=== PATIENT | male | born 1955 | race Caucasian/White ===

== ENCOUNTER → 2021-11-21 | Outpatient (CLI) | payer OTHER | END | disposition home or self-care (01) | LOC: SHCH 14:08 | PROVIDERS: ATTEND Student in an Organized Health Care Education/Training Program | DX: I48.0 Paroxysmal atrial fibrillation (principal); I13.10 Hypertensive heart and chronic kidney disease without heart failure, with stage 1 through stage 4 chronic kidney disease, or unspecified chronic kidney disease; E11.22 Type 2 diabetes mellitus with diabetic chronic kidney disease; N18.9 Chronic kidney disease, unspecified; E78.5 Hyperlipidemia, unspecified; E66.9 Obesity, unspecified | CPT/HCPCS: 93306 ==

== ENCOUNTER 2021-12-10 06:50 | Day surgery (SDC) | payer OTHER ==
[2021-12-08 11:40] LABS: BASOPHILS % (AUTO) 0.6 % (0.0-5.0); EOSINOPHILS % (AUTO) 3.1 % (0.0-8.0); HEMATOCRIT 40.5 % (42-54); LYMPHOCYTES % (AUTO) 19.3 % (21.0-51.0); MEAN CORPUSCULAR HEMOGLOBIN 25.8 pg (27.0-33.0); MEAN CORPUSCULAR HGB CONC 30.4 g/dL (32.0-36.0); MEAN CORPUSCULAR VOLUME 85.1 fL (79-99); MONOCYTES % (AUTO) 7.2 % (3.0-13.0); NEUTROPHILS % (AUTO) 69.6 % (40.0-77.0); PLATELET COUNT (AUTO) 309 K/uL (130-400); RED BLOOD CELL COUNT(AUTO) 4.76 MIL/uL (4.50-6.20); RED CELL DISTRIBUTION WIDTH 15.4 % (11.0-15.5); WHITE BLOOD COUNT (AUTO) 8.7 K/uL (4.8-10.8)
[2021-12-08 11:45] LABS: CREATININE 1.5 mg/dL (0.5-1.5); POTASSIUM 3.8 mmol/L (3.5-5.1)
[2021-12-08 12:03] LABS: INR 1.49 (0.85-1.15); PROTHROMBIN TIME 15.7 SEC (9.6-11.6)
[2021-12-08 12:04] LABS: PARTIAL THROMBOPLASTIN TIME 48.6 SEC (26.3-35.5)
[2021-12-10] VITALS (14 sets, daily range): BP systolic 115–140; BP diastolic 65–84
[~2021-12-10] VITALS: Ht 152.4 cm; Wt 128.6 kg
[~2021-12-10 06:50] MED LIST: AMIO200T68 PO; AMLO-258 PO; ASPI-1443 PO; ATOR20TA65 PO; DABI150C PO; LISI40TA9 PO; METF-446 PO; METO-409 PO; OXYB10TA30 PO
[2021-12-10] MEDS ORDERED: 0.9%NACL 1000ML 1,000 ML IV SCH (08:00)
[2021-12-10] MEDS ORDERED: LIDOCAINE HCL 2% VISCOUS 15 ML UDCUP ONE (08:00)
[2021-12-10] MEDS ORDERED: EPINEPHRINE PF 1MG AMP ONE (08:28)
== END 2021-12-10 10:30 | disposition home or self-care (01) ==
LOC: DAH 06:50 → EDSTATUS 11:00
PROVIDERS: ATTEND Student in an Organized Health Care Education/Training Program
DX: I48.20 Chronic atrial fibrillation, unspecified (principal); I48.0 Paroxysmal atrial fibrillation; E11.22 Type 2 diabetes mellitus with diabetic chronic kidney disease; I12.9 Hypertensive chronic kidney disease with stage 1 through stage 4 chronic kidney disease, or unspecified chronic kidney disease; N18.9 Chronic kidney disease, unspecified; I49.1 Atrial premature depolarization; E78.5 Hyperlipidemia, unspecified; J44.9 Chronic obstructive pulmonary disease, unspecified; Z79.01 Long term (current) use of anticoagulants; Z79.899 Other long term (current) drug therapy; Z86.718 Personal history of other venous thrombosis and embolism; Z86.73 Personal history of transient ischemic attack (TIA), and cerebral infarction without residual deficits; Z79.82 Long term (current) use of aspirin; Z98.890 Other specified postprocedural states
CPT/HCPCS: 36415; 80048; 82948; 85025; 85610; 85730; 87635; 92960; 93312; 93325; C9803; J7030; 96374; 99156; J0171

== ENCOUNTER 2022-02-03 09:10 | Inpatient (IN) | payer OTHER ==
[~2022-02-03] VITALS: Ht 182.9 cm; Wt 122.1 kg
[~2022-02-03 09:10] MED LIST changes: -AMIO200T68 PO; -METO-409 PO
[2022-02-03 09:47] LABS: HEMATOCRIT 41.3 % (42-54); MEAN CORPUSCULAR HGB CONC 30.8 g/dL (32.0-36.0); MEAN CORPUSCULAR VOLUME 84.6 fL (79-99); PLATELET COUNT (AUTO) 379 K/uL (130-400); RED BLOOD CELL COUNT(AUTO) 4.88 MIL/uL (4.50-6.20); RED CELL DISTRIBUTION WIDTH 14.6 % (11.0-15.5); WHITE BLOOD COUNT (AUTO) 10.8 K/uL (4.8-10.8)
[2022-02-03 10:00] LABS: CREATININE 1.7 mg/dL (0.5-1.5); POTASSIUM 3.2 mmol/L (3.5-5.1)
[2022-02-03] MEDS ORDERED: ACET-66 PO (10:00)
[2022-02-03] MEDS ORDERED: ATOR40TA71 PO (10:00)
[2022-02-03] MEDS ORDERED: CYCL-309 PO (10:00)
[2022-02-03] MEDS ORDERED: AMIODARONE 150MG VIAL 150 MG in DEXTROSE 5%-WATER 100 ML IV SCH (10:00)
[2022-02-03] MEDS ORDERED: HYDR-3830 PO (10:00)
[2022-02-03] MEDS ORDERED: AMIO200T68 PO (10:00)
[2022-02-03] MEDS ORDERED: METO50TA18 PO (10:00)
[2022-02-03] MEDS ORDERED: OXYB5TAB15 PO (10:00)
[2022-02-03 10:04] LABS: ALBUMIN 3.5 g/dL (3.5-5.0); BILIRUBIN,TOTAL 0.7 mg/dL (0.2-1.0); TOTAL PROTEIN, SERUM 7.3 g/dL (6.0-8.3)
[2022-02-03] MEDS ORDERED: AMIODARONE 360MG/200ML D5W(1MG/MIN) IV SCH ×2 (10:30)
[2022-02-03] MEDS ORDERED: POTASSIUM CHLORIDE 10% ELIXIR 20 MEQ/15 ML UDCUP PO PRN (11:30)
[2022-02-03] MEDS ORDERED: POTASSIUM CHLORIDE 20MEQ/100ML 100 ML IV PRN (11:30)
[2022-02-03] MEDS: KCL 20 MEQ ERTAB PO PRN ×2 (11:38→18:19)
[2022-02-03] MEDS: MAGNESIUM 2GM PREMIX 50ML 50 ML IV SCH ×2 (11:51→18:20)
[2022-02-03] MEDS ORDERED: CYCLOBENZAPRINE HCL 10 MG TABLET PO PRN (13:00)
[2022-02-03] MEDS ORDERED: ACETAMINOPHEN 500 MG TABLET PO PRN (13:00)
[2022-02-03 13:17] LABS: HEMOGLOBIN A1C 6.7 % (4.0-6.0)
[2022-02-03 15:29] VITALS: BP 143/80
[2022-02-03] MEDS ORDERED: AMIODARONE 540 MG/D5W 300ML (0.5MG/MIN) IV SCH ×2 (16:30)
[2022-02-03] MEDS: INSULIN HUMULIN R 100 UNIT/ML 3ML SQ SCH ×2 (16:30→20:17)
[2022-02-03 16:39] VITALS: BP 114/61
[2022-02-03] MEDS: TERBINAFINE HCL 15 GM TUBE TP SCH (16:41)
[2022-02-03 19:48] VITALS: BP 140/78
[2022-02-03] MEDS: OXYBUTYNIN CHLORIDE 5 MG TABLET PO SCH (20:16)
[2022-02-03] MEDS: HYDROXYZINE 10 MG TABLET PO SCH (20:16)
[2022-02-03] MEDS: DABIGATRAN 150MG CAPSULE PO SCH (20:16)
[2022-02-03 23:44] VITALS: BP 147/80
[2022-02-04] MEDS: TERBINAFINE HCL 15 GM TUBE TP SCH ×2 (03:00→18:51)
[2022-02-04 03:33] LABS: BASOPHILS % (AUTO) 0.5 % (0.0-5.0); EOSINOPHILS % (AUTO) 2.9 % (0.0-8.0); HEMATOCRIT 40.3 % (42-54); LYMPHOCYTES % (AUTO) 17.8 % (21.0-51.0); MEAN CORPUSCULAR HEMOGLOBIN 26.7 pg (27.0-33.0); MEAN CORPUSCULAR HGB CONC 31.8 g/dL (32.0-36.0); MEAN CORPUSCULAR VOLUME 84.1 fL (79-99); MONOCYTES % (AUTO) 6.9 % (3.0-13.0); NEUTROPHILS % (AUTO) 71.5 % (40.0-77.0); PLATELET COUNT (AUTO) 301 K/uL (130-400); RED BLOOD CELL COUNT(AUTO) 4.79 MIL/uL (4.50-6.20); RED CELL DISTRIBUTION WIDTH 14.4 % (11.0-15.5); WHITE BLOOD COUNT (AUTO) 10.5 K/uL (4.8-10.8)
[2022-02-04 03:49] LABS: BILIRUBIN,TOTAL 0.5 mg/dL (0.2-1.0); CREATININE 1.2 mg/dL (0.5-1.5); MAGNESIUM 1.7 mg/dL (1.80-2.40); POTASSIUM 3.3 mmol/L (3.5-5.1); TOTAL PROTEIN, SERUM 6.6 g/dL (6.0-8.3)
[2022-02-04 03:51] VITALS: BP 123/63
[2022-02-04] MEDS: INSULIN HUMULIN R 100 UNIT/ML 3ML SQ SCH ×4 (06:18→20:27)
[2022-02-04] MEDS: MAGNESIUM 2GM PREMIX 50ML 50 ML IV SCH (07:06)
[2022-02-04 08:00] VITALS: BP 136/61
[2022-02-04] MEDS: OXYBUTYNIN CHLORIDE 5 MG TABLET PO SCH ×2 (09:00→20:21)
[2022-02-04] MEDS: LISINOPRIL 20 MG TABLET PO SCH ×2 (09:00→20:20)
[2022-02-04] MEDS: AMLODIPINE 5 MG TAB PO SCH (09:00)
[2022-02-04] MEDS: ASPIRIN 81 MG EC TAB PO SCH (09:00)
[2022-02-04] MEDS: ATORVASTATIN 40 MG TABLET PO SCH (09:00)
[2022-02-04] MEDS: DABIGATRAN 150MG CAPSULE PO SCH ×2 (09:05→20:21)
[2022-02-04] MEDS: KCL 20 MEQ ERTAB PO SCH (10:32)
[2022-02-04 12:00] VITALS: BP 153/78
[2022-02-04] MEDS ORDERED: ATROPINE 1MG SYG IVP ONE (12:11)
[2022-02-04] MEDS ORDERED: PROPOFOL 10 MG/ML 20ML VIAL IV ONE (12:11)
[2022-02-04] MEDS ORDERED: LIDOCAINE PF 100MG/5ML (2%) SYRINGE 5ML ONE (12:12)
[2022-02-04 13:18] LABS: MAGNESIUM 1.8 mg/dL (1.80-2.40); POTASSIUM 3.8 mmol/L (3.5-5.1)
[2022-02-04] MEDS ORDERED: LIDOCAINE HCL-MPF 1% 2ML VIAL ONE (15:37)
[2022-02-04 16:00] VITALS: BP 133/88
[2022-02-04] MEDS: KCL 20 MEQ ERTAB PO PRN (17:22)
[2022-02-04 19:55] VITALS: BP 141/72
[2022-02-04] MEDS: METOPROLOL SUCCINATE 25 MG TAB.SR.24H PO SCH (20:20)
[2022-02-04] MEDS: HYDROXYZINE 10 MG TABLET PO SCH (20:21)
[2022-02-04] MEDS ORDERED: DABIGATRAN 150MG CAPSULE PO SCH (21:00)
[2022-02-05 00:04] VITALS: BP 148/75
[2022-02-05] MEDS: TERBINAFINE HCL 15 GM TUBE TP SCH (03:00)
[2022-02-05 03:50] LABS: HEMATOCRIT 41.7 % (42-54); MEAN CORPUSCULAR HEMOGLOBIN 26.6 pg (27.0-33.0); MEAN CORPUSCULAR HGB CONC 31.7 g/dL (32.0-36.0); MEAN CORPUSCULAR VOLUME 84.1 fL (79-99); RED BLOOD CELL COUNT(AUTO) 4.96 MIL/uL (4.50-6.20); RED CELL DISTRIBUTION WIDTH 14.5 % (11.0-15.5); WHITE BLOOD COUNT (AUTO) 12.3 K/uL (4.8-10.8)
[2022-02-05 04:01] LABS: CREATININE 1.3 mg/dL (0.5-1.5); POTASSIUM 3.6 mmol/L (3.5-5.1)
[2022-02-05 04:49] VITALS: BP 146/89
[2022-02-05] MEDS: INSULIN HUMULIN R 100 UNIT/ML 3ML SQ SCH ×2 (06:28→11:09)
[2022-02-05] MEDS: KCL 20 MEQ ERTAB PO PRN (06:33)
[2022-02-05 07:01] VITALS: BP 148/91
[2022-02-05] MEDS: ATORVASTATIN 40 MG TABLET PO SCH (08:36)
[2022-02-05] MEDS: ASPIRIN 81 MG EC TAB PO SCH (08:36)
[2022-02-05] MEDS: KCL 20 MEQ ERTAB PO SCH (08:36)
[2022-02-05] MEDS: OXYBUTYNIN CHLORIDE 5 MG TABLET PO SCH (08:36)
[2022-02-05] MEDS: AMLODIPINE 5 MG TAB PO SCH (08:36)
[2022-02-05] MEDS: DABIGATRAN 150MG CAPSULE PO SCH (08:37)
[2022-02-05] MEDS: LISINOPRIL 20 MG TABLET PO SCH (08:37)
[2022-02-05] MEDS: METOPROLOL SUCCINATE 25 MG TAB.SR.24H PO SCH (08:47)
[2022-02-05] MEDS ORDERED: PANTOPRAZOLE 40 MG/VIAL IVP SCH (09:00)
[2022-02-05] MEDS ORDERED: METO25TA6 PO (10:52)
[2022-02-05] MEDS ORDERED: LISI20TA24 PO (10:52)
[2022-02-05] MEDS ORDERED: PANT40TA54 PO (10:52)
[2022-02-05] MEDS ORDERED: AEC81 PO (10:52)
[2022-02-05] MEDS ORDERED: DABI150C PO (10:52)
[2022-02-05] MEDS ORDERED: ATOR40TA71 PO (10:52)
[2022-02-05] MEDS ORDERED: AMLO-258 PO (10:52)
[2022-02-05] MEDS ORDERED: METO-408 PO (11:05)
[2022-02-05 11:39] VITALS: BP 156/86
== END 2022-02-05 13:30 | disposition home or self-care (01) | DRG 310 ==
LOC: EDH 09:10 → EDHIP 09:26 → 2AH 10:55
PROVIDERS: ADMIT Hospitalist; ATTEND Hospitalist
PROC: 5A2204Z Restoration of Cardiac Rhythm, Single (ICD-10-PCS; principal; 2022-02-04)
DX: I48.19 Other persistent atrial fibrillation (principal); I10 Essential (primary) hypertension; E87.6 Hypokalemia; E66.9 Obesity, unspecified; E78.5 Hyperlipidemia, unspecified; B35.1 Tinea unguium; Z79.01 Long term (current) use of anticoagulants; Z68.37 Body mass index [BMI] 37.0-37.9, adult; Z86.718 Personal history of other venous thrombosis and embolism; E11.9 Type 2 diabetes mellitus without complications; I25.10 Atherosclerotic heart disease of native coronary artery without angina pectoris; E83.42 Hypomagnesemia; G47.33 Obstructive sleep apnea (adult) (pediatric)
CPT/HCPCS: 36415; 80048; 80053; 80061; 82948; 83036; 83735; 84132; 84443; 85025; 85027; 92960; 93005; 93312; C9113; G0378; J0282; J0461; J2001; J2704; J3475; J3480; J3490; J7060